=== PATIENT | female | born 1995 | race Caucasian/White ===

== ENCOUNTER → 2016-04-06 | Outpatient (CLI) | payer OTHER ==
--- NOTE | 2016-04-06 10:28 | US ---
EXAMINATION TYPE: US pelvic complete DATE OF EXAM: 04/06/2016 10:04 AM COMPARISON: 12/11/2014 CLINICAL HISTORY: Prev R Ovarian Cyst N83.20. TECHNIQUE: Transabdominal (TA) Date of LMP: now EXAM MEASUREMENTS: Uterus: 8.1 x 4.6 x 6.4 cm Endometrial Stripe: 0.7 cm Right Ovary: 8.2 x 6.0 x 5.8 cm Left Ovary: not visualized Findings: complex cyst in right adnexa, most likely ovary. Hyperechoic component and large( 6.0 x 5.7 x 5.8 cm ) cystic component. Left ovary not visulaized; patient opted not to have transvaginal at this time. 1. Uterus: Anteverted 2. Endometrium: 0.7 cm 3. Right Ovary: as above 4. Left Ovary: not visualized 5. Bilateral Adnexa: wnl 6. Posterior cul-de-sac: no free fluid IMPRESSION: 1. Complex right ovarian lesion consistent with history of dermoid lesion.
== END | disposition home or self-care (01) ==
LOC: RADUSWWP 09:49
PROVIDERS: ATTEND Obstetrics & Gynecology
DX: N83.8 Other noninflammatory disorders of ovary, fallopian tube and broad ligament (principal)
CPT/HCPCS: 76856

== ENCOUNTER → 2016-05-31 | Outpatient (CLI) | payer OTHER ==
[2016-05-31 16:15] LABS: Basophils % (A) 1 %; CH 27.5; Eosinophils # (A) 0.2 k/uL (0-0.7); Eosinophils % (A) 3 %; HCT 41.8 % (34.0-46.0); HGB 13.2 gm/dL (11.4-16.0); Luc # (Auto) 0.15; Luc % (Auto) 3; Lymphocytes # (A) 2.1 k/uL (1.0-4.8); Lymphocytes % (A) 39 %; MCH 27.3 pg (25.0-35.0); MCHC 31.7 g/dL (31.0-37.0); MCV 86.3 fL (80.0-100.0); Mean Platelet Volume 8.2; Monocytes # (A) 0.2 k/uL (0-1.0); Monocytes % (A) 4 %; Neutrophils # (A) 2.7 k/uL (1.3-7.7); Neutrophils % (A) 50 %; RBC 4.84 m/uL (3.80-5.40); RDW 14.4 % (11.5-15.5); WBC 5.5 k/uL (4.0-11.0); WBC (Perox) 5.69
== END | disposition home or self-care (01) ==
LOC: LABPAT 15:57
PROVIDERS: ATTEND Obstetrics & Gynecology
DX: Z01.812 Encounter for preprocedural laboratory examination (principal)
CPT/HCPCS: 85025

== ENCOUNTER 2016-06-06 07:05 | Day surgery (SDC) | payer OTHER ==
[2016-06-01 13:25] VITALS: BMI 39.9
[~2016-06-06 07:05] MED LIST: DEXAMETHASONE SOD PHOSPHATE 10 MG/ML 1 ML VIAL IV ONE; HYDROmorphone 1 MG/ML 1 ML SYRINGE IVP PRN; LACTATED RINGERS 1,000 ML IV SCH; MIDAZOLAM 2 MG/2 ML VIAL IV PRN; ONDANSETRON 4 MG/2 ML VIAL IVP ONE; ceFAZolin 2 GM in SODIUM CHLORIDE 0.9% 100 ML IVPB ONE
[2016-06-06 07:25] VITALS: BP 137/71; PULSE 98; RESP 16; TEMP 98
[2016-06-06] MEDS ORDERED: LIDOCAINE 1% 20 ML VIAL (10MG/ML) FOR IV START INTRADERMA ONE (07:33)
--- NOTE | 2016-06-06 08:16 | P.HPOB ---
History of Present Illness H&P Date: 06/06/16 Chief Complaint: ovarian mass Glucola seen and evaluated preoperatively. She has significant hesitations reservations about surgery as she would have to stay overnight and would have leave her baby at home without her period she has an enlarging dermoid cyst that has been causing her significant pain is limiting her ability to care for child at home and that is why the surgery was scheduled. The dermoid cyst has been present for at least 2 years. Initially when it was first diagnosed she did not follow up for care but then became and therefore could not have care done for it. We followed through the and had plan to remove the cyst. Dermoid initially 2015 was 2.5 cm but has gotten significantly larger over the last 2 years. Her family is trying to this convince her to have surgery however she is very hesitant and at this point I think it is unlikely that I feel couple proceeding with the surgery due to her hesitations as I don't want her to come back and say that she Does Not Want Surgery and That I Cut on Her without Her Wishes. Anesthesia Is Also Equally Hesitant to Move Forward Patient's Demeanor. Patient's past medical history generally speaking has been unremarkable. Past surgical history she did have arm surgery ALLERGIES to [place]. control pills Family history is noncontributory plan is exploratory laparotomy with cystectomy versus oophorectomy. . On physical exam this is an obese female whose HEENT is otherwise unremarkable. Her heart is regular, lungs are clear, extremities without pain. Abdomen is otherwise soft with only minimal tenderness. Pelvic exam is grossly unremarkable due to size. Assessment dermoid cyst. Plan exploratory laparotomy with cystectomy versus oophorectomy. After lengthy discussion with patient and family, I decided that surgery was canceled as she is not fully committed to the surgery and/or the recovery that we had previously discussed. It is my feeling that the patient's family is much more proactive in getting the surgery done and she still has major hesitations about proceeding due to above. We will see her back in the office and reconfigured what were going to do. All questions are answered for she and her family at this time and will plan to cancel surgery for today. Past Medical History Past Medical History: No Reported History Additional Past Medical History / Comment(s): OVARIAN CYST History of Any Multi-Drug Resistant Organisms: None Reported Past Surgical History: Cholecystectomy, Orthopedic Surgery Additional Past Surgical History / Comment(s): Intussusception, intestinal surgery at 2 years old. ORIF LEFT ARM at 8 years old METAL PLATE., biliary stent Past Anesthesia/Blood Transfusion Reactions: No Reported Reaction Past Psychological History: No Psychological Hx Reported Smoking Status: Current every day smoker Past Alcohol Use History: Rare Additional Past Alcohol Use History / Comment(s): 1/2 PPD FOR 5YRS Past Drug Use History: Marijuana Additional Drug Use History / Comment(s): OCCASIONAL USE, INSTRUCTED TO ABSTAIN 24 HRS PRIOR TO PROCEDURE - Past Family History Mother Family Medical History: CVA/TIA Additional Family Medical History / Comment(s): Maternal grandma has stent. Medications and Allergies Home Medications Medication Instructions Recorded Confirmed Type No Known Home Medications [No 06/01/16 06/01/16 History Known Home Medications] Allergies Allergy/AdvReac Type Severity Reaction Status Date / Time hydrocodone [From [place]] AdvReac Vomiting Verified 06/01/16 13:18 Exam Osteopathic Statement: *. No significant issues noted on an osteopathic structural exam other than those noted in the History and Physical/Consult. - Vital Signs Vital signs: Vital Signs Temp Pulse Resp BP Pulse Ox 06/06/16 07:22 98 F 98 16 137/71 96
== END 2016-06-06 08:10 | disposition home or self-care (01) ==
LOC: OR 07:05 → UNDOADMIN 07:05 → 2ORWHC 07:05 → EDSTATUS 07:30 → OR 08:10
PROVIDERS: ATTEND Obstetrics & Gynecology
DX: D27.0 Benign neoplasm of right ovary (principal); Z53.8 Procedure and treatment not carried out for other reasons; E66.9 Obesity, unspecified; Z88.5 Allergy status to narcotic agent; F17.200 Nicotine dependence, unspecified, uncomplicated
CPT/HCPCS: J1100; J0690; J2405